=== PATIENT | male | born 1995 | race Caucasian/White ===

== ENCOUNTER 2017-05-02 13:50 | Emergency (ER) | payer OTHER ==
[~2017-05-02] VITALS: Ht 177.8 cm; Wt 63.6 kg
[2017-05-02 15:25] VITALS: BP 127/75
== END 2017-05-02 15:31 | disposition home or self-care (01) ==
LOC: EMS 13:52
DX: J30.9 Allergic rhinitis, unspecified (principal); R05 Cough
CPT/HCPCS: 99282